=== PATIENT | female | born 1965 | race Caucasian/White ===

== ENCOUNTER 2016-07-14 14:09 | Observation (INO) | payer OTHER ==
[~2016-07-14] VITALS: Ht 167.6 cm; Wt 80.0 kg
[2016-07-14 14:11] VITALS: BP 181/100; PULSE 105; RESP 14; TEMP 98.6; O2SAT 97
[2016-07-14 15:51] LABS: AUTOMATED NEUTROPHIL # 4.8 TH/MM3 (1.8-7.7); BASOPHIL % 0.4 % (0.0-2.0); EOSINOPHIL # 0.1 TH/MM3 (0-0.4); HEMATOCRIT 40.3 % (35.0-46.0); HEMO FLAGS DIFF FINAL; LYMPH % 25.8 % (9.0-44.0); MEAN CELL VOLUME 85.1 FL (80.0-100.0); MEAN CORPUSCULAR HEMOGLOBIN 28.6 PG (27.0-34.0); MEAN CORPUSCULAR HGB CONC 33.6 % (32.0-36.0); MONO % 9.3 % (0.0-8.0); NEUT % 63.5 % (16.0-70.0); PLATELET COUNT 328 TH/MM3 (150-450); RED BLOOD COUNT 4.74 MIL/MM3 (4.00-5.30); RED CELL DISTRIBUTION WIDTH 13.4 % (11.6-17.2); WHITE BLOOD COUNT 7.6 TH/MM3 (4.0-11.0)
--- NOTE | 2016-07-14 16:10 | RADRPT ---
EXAM DATE/TIME: 07/14/2016 15:59 [facility] COMPARISON: No previous studies available for comparison. INDICATIONS : Chest pain. MEDICAL HISTORY : None. SURGICAL HISTORY : None. ENCOUNTER: Initial ACUITY: 1 day PAIN SCORE: 3/10 LOCATION: Bilateral chest FINDINGS: A single view of the chest demonstrates the lungs to be symmetrically aerated without evidence of mas s, infiltrate or effusion. The cardiomediastinal contours are unremarkable. Osseous structures are intact. CONCLUSION: Normal examination for a patient of this age. Berny Lares MD on July 14, 2016 at 16:09 Board Certified Radiologist. This report was verified electronically.
[2016-07-14 16:12] LABS: ANION GAP 7 MEQ/L (5-15); BICARBONATE 26.1 MEQ/L (21.0-32.0); BLOOD UREA NITROGEN 14 MG/DL (7-18); CHLORIDE 110 MEQ/L (98-107); GLOMERULAR FILTRATION RATE 71 ML/MIN (>89); POTASSIUM 3.9 MEQ/L (3.5-5.1); SODIUM (NA) 143 MEQ/L (136-145)
[2016-07-14 16:21] LABS: CREATINE KINASE 99 U/L (26-192)
[2016-07-14] MEDS ORDERED: TOPA100T11 PO (16:51)
[2016-07-14] MEDS ORDERED: IMIT100T PO (16:52)
--- NOTE | 2016-07-14 16:52 | PD ---
HPI Chief Complaint: Cardiac Complaint Time Seen by Provider: 16:42 Travel History International Travel<30 days: No Contact w/Intl Traveler<30days: No Traveled to known affect area: No History of Present Illness HPI This is a 51-year-old female who presents today with complaints of intermittent chest pain. Patient states that she has degenerative disc disease in her neck that usually causes shoulder pain on the left with numbness and tingling. She states today she was walking to a restaurant when she started experiencing pain in her chest. She states this is different than the pain she is expanse before. She reported mild nausea and shortness of breath with the discomfort. Patient has no history of cardiac disease. She is unsure of her family history because she is adopted. There are no other complaints time my examination. PFSH Past Medical History Kidney Stones: Yes Musculoskeletal: Yes (degenerative disc in cervical spine. ) Influenza Vaccination: No ?: Not Social History Alcohol Use: No Tobacco Use: No Substance Use: No Allergies-Medications (Allergen,Severity, Reaction): Coded Allergies: No Known Allergies (Unverified , 07/14/16) Review of Systems Except as stated in HPI: all other systems reviewed are Neg HENT: No: Headaches, Lightheadedness Cardiovascular: Positive: Chest Pain or Discomfort, No: Palpitations Respiratory: Positive: Shortness of Breath, No: Cough Gastrointestinal: Positive: Nausea, No: Vomiting (with pain) Musculoskeletal: Positive: Pain (left shoulder which is chronic from degenerative disc disease in her spine/cervical) Physical Exam Narrative GENERAL: Well-nourished, well-developed patient. SKIN: Warm and dry. HEAD: Normocephalic/atraumatic. EYES: No scleral icterus. No injection or drainage. NECK: Supple, trachea midline. No JVD or lymphadenopathy. CARDIOVASCULAR: Regular rate and rhythm without murmurs, gallops, or rubs. RESPIRATORY: Breath sounds equal bilaterally. No accessory muscle use. GASTROINTESTINAL: Abdomen soft, non-tender, nondistended. MUSCULOSKELETAL: Trace edema bilateral pretibial area. NEUROLOGICAL: Awake and alert. Cranial nerves II through XII intact. Motor grossly within normal limits. Five out of 5 muscle strength in all muscle groups. Normal speech. Data Data Last Documented VS Vital Signs Date Time Temp Pulse Resp B/P Pulse Ox O2 Delivery O2 Flow Rate FiO2 1/3/17 16:16 84 18 98 Room Air 07/14/16 14:11 98.6 181/100 Orders Electrocardiogram (07/14/16 ) Complete Blood Count With Diff (07/14/16 15:01) Basic Metabolic Panel (Bmp) (07/14/16 15:01) Ckmb (Isoenzyme) Profile (07/14/16 15:01) Troponin I (07/14/16 15:01) Chest, Single Ap (07/14/16 15:01) Admit Order (Ed Use Only) (07/14/16 16:43) Labs Laboratory Tests Test 07/14/16 15:24 White Blood Count 7.6 TH/MM3 Red Blood Count 4.74 MIL/MM3 Hemoglobin 13.6 GM/DL Hematocrit 40.3 % Mean Corpuscular Volume 85.1 FL Mean Corpuscular Hemoglobin 28.6 PG Mean Corpuscular Hemoglobin 33.6 % Concent Red Cell Distribution Width 13.4 % Platelet Count 328 TH/MM3 Mean Platelet Volume 8.4 FL Neutrophils (%) (Auto) 63.5 % Lymphocytes (%) (Auto) 25.8 % Monocytes (%) (Auto) 9.3 % Eosinophils (%) (Auto) 1.0 % Basophils (%) (Auto) 0.4 % Neutrophils # (Auto) 4.8 TH/MM3 Lymphocytes # (Auto) 2.0 TH/MM3 Monocytes # (Auto) 0.7 TH/MM3 Eosinophils # (Auto) 0.1 TH/MM3 Basophils # (Auto) 0.0 TH/MM3 CBC Comment DIFF FINAL Differential Comment Sodium Level 143 MEQ/L Potassium Level 3.9 MEQ/L Chloride Level 110 MEQ/L Carbon Dioxide Level 26.1 MEQ/L Anion Gap 7 MEQ/L Blood Urea Nitrogen 14 MG/DL Creatinine 0.85 MG/DL Estimat Glomerular Filtration 71 ML/MIN Rate Random Glucose 90 MG/DL Calcium Level 9.6 MG/DL Total Creatine Kinase 99 U/L Troponin I LESS THAN 0.02 NG/ML MDM Medical Decision Making Medical Screen Exam Complete: Yes Emergency Medical Condition: Yes Interpretation(s) Last 24 hours Impressions Chest X-Ray 07/14/16 1501 Signed Impressions: Service Date/Time: Thursday, July 14, 2016 15:59 - CONCLUSION: Normal examination for a patient of this age. Berny Lares MD Differential Diagnosis ACS versus musculoskeletal versus nerve pain from cervical spine. Narrative Course 51-year-old female presents with substernal and left sided chest pain. The patient has a history of degenerative disc disease of the cervical spine which causes chronic left shoulder pain and numbness. She states this pain is different than her previous discomfort from her cervical spine. The patient reported associated nausea and shortness of breath with the discomfort. The patient's EKG shows no evidence of acute findings. Cardiac enzymes are within normal limits. I discussed the findings with the patient of her cardiac workup and offered her chest pain center admission. She has agreed to this admission and will undergo the chest pain center protocol. Diagnosis Primary Impression: Chest pain Additional Impression: Cervical radiculopathy due to degenerative joint disease of spine Antonio Farley MD Jul 14, 2016 16:52
[2016-07-14 18:41] VITALS: BP 151/68; PULSE 74; RESP 16; O2SAT 99
[2016-07-14] MEDS ORDERED: SODIUM CHLORIDE 0.9% FLUSH 5 ML FLUSH IVF PRN (18:45)
[2016-07-14 20:00] VITALS: O2SAT 97
[2016-07-14 20:33] LABS: CREATINE KINASE 92 U/L (26-192)
[2016-07-14] MEDS: SODIUM CHLORIDE 0.9% FLUSH 5 ML FLUSH IVF SCH (21:00)
[2016-07-14 21:14] VITALS: BP 145/91; PULSE 74; RESP 21; TEMP 98.2; O2SAT 98
[2016-07-14 23:11] LABS: CREATINE KINASE 86 U/L (26-192)
[2016-07-15] VITALS (7 sets, daily range): BP systolic 123–158; BP diastolic 60–79; PULSE 57–81; RESP 18–21; TEMP 97.7–98.8; O2SAT 97–98
--- NOTE | 2016-07-15 10:10 | MH ---
cc: DEVANTE SAENZ MD DATE OF ADMISSION: 07/14/2016 HISTORY OF PRESENT ILLNESS This is a 51-year-old woman who is admitted to the hospital with shortness of breath and chest discomfort. She has a history of cervical spine pain for which she underwent an epidural several years ago. This has worked well but she has noted over the past several days that she has had recurrence of her neck pain with numbness and tingling in her left upper extremity and lower extremity. She actually has noted over the past several months problems with shortness of breath on exertion and chest discomfort. Her shortness of breath from exertion occurs primarily when she is traveling, for example, going from the baggage area to her gait as part of her travels. Her chest discomfort can accompany the shortness of breath but not always. It lasts for hours at a time and there is no particular relieving factor is present. She came to the hospital with radicular pain in her left arm has also involved her chest and she feels this is somewhat different than that for which she has had her epidural several years ago. She notes that her discomfort is present while we are discussing her care and also during her electrocardiograms which have been unremarkable for ischemia. Risk factors for coronary artery disease are notably absent. She does not know her family history as she is adopted, but she is a nonsmoker. No history of hypertension or diabetes have been present. She notes that at her last cholesterol check she was told that it was very good. PAST MEDICAL HISTORY Otherwise only significant for migraines. SOCIAL HISTORY The patient does not smoke, drink or use recreational drugs. 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 PHYSICAL EXAMINATION GENERAL: She is awake and alert in no distress. NECK: No neck vein distension. LUNGS: Clear. CARDIOVASCULAR: Regular rate and rhythm with no murmur or gallop. ASSESSMENT The patient has atypical chest discomfort which is not likely to be coronary disease. Will get a Lexiscan to rule out occult disease. If this is negative I suggested that she try anti-inflammatories for her radicular pain. She has an appointment for an MRI and follow-up with her auto customize painter to consider repeat epidural for relief of her radicular symptoms. MD CASS Rosenberg/KASSIE /9:57 AM /10:03 AM
[2016-07-15] MEDS: SODIUM CHLORIDE 0.9% FLUSH 5 ML FLUSH IVF SCH (10:15)
[2016-07-15] MEDS ORDERED: REGADENOSON INJ 0.4 MG/5 ML SYR ONE (13:05)
--- NOTE | 2016-07-15 13:21 | EKG ---
Date Performed: 07/14/2016 Time Performed: 21:30:27 PTAGE: 51 years EKG: Sinus rhythm NORMAL ECG PREVIOUS TRACING : 07/14/2016 19.31 Since previous tracing, no significant change noted DOCTOR: Scott Cohen Interpretating Date/Time 07/15/2016 13:19:13
[2016-07-15] MEDS ORDERED: AMINOPHYLLINE INJ 250 MG/10 ML VIAL ONE (13:33)
--- NOTE | 2016-07-15 14:35 | RADRPT ---
EXAM DATE/TIME: 07/15/2016 12:32 [facility] COMPARISON: No previous studies available for comparison. INDICATIONS : Chest pain with left side numbeness for 1 day. Angina. DOSE: 25.4 mCi Tc99m Myoview at stress. 8.5 mCi Tc99m Myoview at rest. 0.4 mg Lexiscan STRESS SYMPTOMS: Dyspnea and lightheaded. EJECTION FRACTION: > 70% MEDICAL HISTORY : Degenerative disc in cervical spine. SURGICAL HISTORY : None. ENCOUNTER: Initial ACUITY: 1 day PAIN SCALE: 3/10 LOCATION: Bilateral chest TECHNIQUE: The patient underwent pharmacologic stress with infusion of prescribed dose. Continuous ECG tracing was monitored during stress. Gated SPECT imaging was performed after stress and conventional SPECT i maging was performed at rest. The examination was performed on a SPECT/CT scanner, both attenuation and non-corrected datasets were reviewed. FINDINGS: DISTRIBUTION: The maximum perfused segment at stress is in the lateral wall. PERFUSION STUDY: The pattern of perfusion at stress is within normal limits. GATED STUDY: There is intact wall motion and thickening without hypokinetic or dyskinetic segments. CONCLUSION: 1. No reversible perfusion defect to suggest stress-induced myocardial ischemia. RISK CATEGORY: Low (<1% Annual Mortality Rate) Neel Cruz MD on July 15, 2016 at 14:32 Board Certified Radiologist. This report was verified electronically.
--- NOTE | 2016-07-15 14:40 | HHI.DCPOC ---
Discharge Care Plan Diagnosis: (1) Chest pain, atypical Goals to Promote Your Health * To prevent worsening of your condition and complications * To maintain your health at the optimal level Directions to Meet Your Goals Take your medications as prescribed Follow your dietary instruction Follow activity as directed Keep your appointments as scheduled Take your immunizations and boosters as scheduled If your symptoms worsen call your PCP, if no PCP go to Urgent Care Center or Emergency Room Smoking is Dangerous to Your Health. Avoid second hand smoke Call the 24-hour hour crisis hotline for domestic abuse at Jose Breaux Jul 15, 2016 14:40
--- NOTE | 2016-07-15 15:25 | EKG ---
Date Performed: 07/14/2016 Time Performed: 19:31:50 PTAGE: 51 years EKG: Sinus rhythm NORMAL ECG PREVIOUS TRACING : 07/14/2016 15.38 Since previous tracing, no significant change noted DOCTOR: Scott Cohen Interpretating Date/Time 07/15/2016 15:25:25
--- NOTE | 2016-07-15 15:27 | EKG ---
Date Performed: 07/14/2016 Time Performed: 15:38:44 PTAGE: 51 years EKG: Sinus rhythm NORMAL ECG NO PREVIOUS TRACING DOCTOR: Scott Cohen Interpretating Date/Time 07/15/2016 15:26:56
--- NOTE | 2016-07-15 15:32 | TR ---
Date Performed: 07/15/2016 Time Performed: 13:12:01 DOCTOR: Scott Cohen DRUG LIST: CLINICAL HISTORY: CHEST PAIN REASON FOR TEST: CHEST PAIN REASON FOR ENDING: OBSERVATION: CONCLUSION: Lexiscan stress test was performed under standard four minute protocol. Radionuclid e was injected one minute prior to ending the test. No electrocardiographic abormalities were present to suggest ischemia. Nuclear imaging and interpretation are pending. COMMENTS:
== END 2016-07-15 15:28 | disposition home or self-care (01) ==
LOC: NEPA 14:09 → NEDH 16:45 → NEPGCP 20:58
PROVIDERS: ADMIT Internal Medicine Interventional Cardiology; ATTEND Internal Medicine Interventional Cardiology
DX: R07.9 Chest pain, unspecified (principal); M50.10 Cervical disc disorder with radiculopathy, unspecified cervical region; R11.0 Nausea; R06.02 Shortness of breath; R20.0 Anesthesia of skin
CPT/HCPCS: 71010; 78452; 80048; 82550; 84484; 85025; 93005; 93017; 99285; A9502; G0378; J0280; J2785